=== PATIENT | female | born 1985 | race American Indian/Alaskan Native ===

== ENCOUNTER → 2024-02-15 | Outpatient (CLI) | payer MEDICAID, SELFPAY ==
--- NOTE | 2024-02-15 14:52 | XR_ITS ---
Examination: PA lateral chest 2 views TECHNIQUE: Upright PA lateral chest 2 views Exam date and time: February 15, 2024 1517 hours Comparison February 16, 2016 INDICATIONS: Coughing beginning 3 days ago. FINDINGS: Early right perihilar right middle lobe pneumonia Normal heart size Reduced inspiratory effort Thoracic dextroscoliosis 15 degrees IMPRESSION: Early right perihilar right middle lobe pneumonia
== END | disposition home or self-care (01) ==
LOC: COPL 14:50 → CDIM 03-07 12:03
PROVIDERS: PCP Nurse Practitioner Family; Referring Provider Nurse Practitioner Family; Visit Provider Nurse Practitioner Family
DX: J18.9 Pneumonia, unspecified organism (principal)
CPT/HCPCS: 71046

== ENCOUNTER → 2024-04-24 | Outpatient (CLI) | payer MEDICAID, SELFPAY ==
--- NOTE | 2024-04-24 15:23 | XR_ITS ---
Examination: AP pelvis 2 views TECHNIQUE: AP pelvis hips in neutral position, AP pelvis hips abduction position Exam date and time: April 24, 2024 1608 hours INDICATIONS: Left hip pain beginning 2 days ago. FINDINGS: No hip or pelvic fracture No hip dislocation Moderate osteopenia IMPRESSION: No hip or pelvic fracture Repeat this study in one to 2 days as clinically warranted
== END | disposition home or self-care (01) ==
PROVIDERS: PCP Physician Assistant; Referring Provider Physician Assistant; Visit Provider Physician Assistant
DX: M25.559 Pain in unspecified hip (principal)
CPT/HCPCS: 73523